=== PATIENT | female | born 1945 | race Caucasian/White ===

== ENCOUNTER 2022-05-22 15:45 | Observation (INO) ==
[2022-05-22] MEDS ORDERED: DILTIAZEM 25 MG/5 ML VIAL IV ONE (16:01)
[2022-05-22] MEDS ORDERED: DILTIAZEM 100 MG VIAL.ADD IV ONE (16:01)
[2022-05-22] MEDS ORDERED: DILTIAZEM 25 MG/5 ML VIAL IV STA (16:02)
[2022-05-22] MEDS: DILTIAZEM INJ 100 MG in SODIUM CHLORIDE 0.9% 100 ML IV SCH (16:08)
[2022-05-22 16:12] LABS: Basophils # 0.1 10*3/uL (0.0-0.2); Basophils % 0.9 % (0.0-0.8); Eosinophils # 0.1 10*3/uL (0.0-0.87); Eosinophils % 1.9 % (0.00-10.9); Hematocrit 40.5 VOL% (35.7-47.0); Hemoglobin 12.9 GM/DL (12.0-16.0); Immature Granulocytes % 0.2 %; Immature Granulocytes Absolute 0.01 #; Lymphocytes # 2.3 10*3/uL (1.4-4.0); Lymphocytes % 35.3 % (21.3-54.2); Mean Corpuscular HGB Conc 31.9 GM/DL (32-36); Mean Corpuscular Volume 93.1 FL (87-102); Mean Platelet Volume 12.7 FL (9.6-12.0); Monocytes # 0.6 10*3/uL (0.11-0.8); Monocytes % 8.7 % (1.7-12.7); Platelet Count 233 T/CUMM (130-400); Red Blood Count 4.35 MC/CUMM (3.8-5.5); Red Cell Distribution Width 13.6 % (9.3-17.3); White Blood Count 6.5 T/CUMM (4-12)
[2022-05-22 16:25] LABS: PT Patient Result 11.2 SECS (10.1-12.1); Partial Thromboplastin Time 29.3 SECS (23.7-32.9)
[2022-05-22 16:34] LABS: Albumin 3.9 G/DL (3.4-5.0); Bilirubin,Total 0.5 MG/DL (0.20-1.00); Calcium 9.4 MG/DL (8.5-10.1); Osmolality,Calculated 286.8 MOS/KG (273-304); Potassium 3.8 MMOL/L (3.5-5.1)
[2022-05-22 16:46] LABS: Barbiturates Screen,Urine Negative (Negative); Benzodiazepines Screen,Urine Negative (Negative); Cannabinoid Screen,Urine Negative (Negative); Opiate Screen,Urine Negative (Negative); Phencyclidine Screen,Urine Negative (Negative)
[2022-05-22 16:52] LABS: Thyroid Stimulating Hormone 1.82 uIU/ml (0.358-3.74)
[2022-05-22] MEDS ORDERED: ACETAMINOPHEN 325 MG TABLET PO PRN (17:39)
[2022-05-22] MEDS ORDERED: ONDANSETRON 4 MG/2 ML VIAL IV PRN (17:39)
[2022-05-22] MEDS: SODIUM CHLORIDE 0.9% 1,000 ML IV SCH (17:53)
[2022-05-22] MEDS ORDERED: DIAZEPAM 5 MG TABLET PO PRN (19:17)
[2022-05-22] MEDS ORDERED: TRAMADOL ACETAMINOPHEN PO PRN ×2 (19:17→20:00)
[2022-05-22] MEDS: APIXABAN 5 MG TABLET PO SCH (21:29)
[2022-05-22] MEDS: POTASSIUM CHLORIDE 10 MEQ TABLET PO SCH (21:29)
[2022-05-22] MEDS: DOCUSATE SODIUM 100 MG CAPSULE PO SCH (21:29)
[2022-05-23] MEDS: SODIUM CHLORIDE 0.9% 1,000 ML IV SCH ×2 (02:10→11:40)
[2022-05-23] MEDS ORDERED: METOPROLOL SUCCINATE XL 100 MG TABLET PO SCH (09:00)
[2022-05-23] MEDS: DOCUSATE SODIUM 100 MG CAPSULE PO SCH ×2 (11:39→21:24)
[2022-05-23] MEDS: VALSARTAN 160 MG TABLET PO SCH (11:39)
[2022-05-23] MEDS: SIMVASTATIN 10 MG TABLET PO SCH (11:39)
[2022-05-23] MEDS: SOTALOL 80 MG TABLET PO SCH ×2 (11:39→21:23)
[2022-05-23] MEDS: APIXABAN 5 MG TABLET PO SCH ×2 (11:40→21:23)
[2022-05-23] MEDS: PANTOPRAZOLE 40 MG TABLET PO SCH (11:40)
[2022-05-23] MEDS ORDERED: SODIUM CHLORIDE 0.9% 1,000 ML IV SCH (15:30)
[2022-05-23] MEDS: DILTIAZEM INJ 100 MG in SODIUM CHLORIDE 0.9% 100 ML IV SCH (16:54)
[2022-05-23] MEDS: POTASSIUM CHLORIDE 10 MEQ TABLET PO SCH (21:23)
[2022-05-24] MEDS ORDERED: DULoxetine 30 MG CAPSULE PO SCH (09:00)
[2022-05-24] MEDS: DOCUSATE SODIUM 100 MG CAPSULE PO SCH (09:35)
[2022-05-24] MEDS: SIMVASTATIN 10 MG TABLET PO SCH (09:35)
[2022-05-24] MEDS: APIXABAN 5 MG TABLET PO SCH (09:35)
[2022-05-24] MEDS: PANTOPRAZOLE 40 MG TABLET PO SCH (09:35)
[2022-05-24] MEDS: SOTALOL 80 MG TABLET PO SCH ×2 (09:35→16:27)
[2022-05-24] MEDS: VALSARTAN 160 MG TABLET PO SCH (09:35)
[2022-05-24 10:00] LABS: Calcium 8.3 MG/DL (8.5-10.1); Osmolality,Calculated 289.7 MOS/KG (273-304); Potassium 4.2 MMOL/L (3.5-5.1)
[2022-05-24 18:41] VITALS: BP 139/73
== END 2022-05-24 19:31 | disposition home or self-care (01) ==
LOC: N.ED 15:45 → N.EDINP 15:45 → N.TELES 17:34
PROVIDERS: ADMIT Family Medicine; ATTEND Family Medicine